=== PATIENT | female | born 1980 ===

== ENCOUNTER → 2022-04-17 | Emergency (ER) | payer OTHER ==
[~2022-04-17] VITALS: Ht 175.3 cm; Wt 80.7 kg
[~2022-04-17] MED LIST: LEVOTHYROXINE50 MC1 PO
== END | disposition home or self-care (01) ==
LOC: ER 16:34
DX: S90.121A Contusion of right lesser toe(s) without damage to nail, initial encounter (principal); X58.XXXA Exposure to other specified factors, initial encounter; Y93.9 Activity, unspecified; Y92.9 Unspecified place or not applicable